=== PATIENT | male | born 1985 | race Caucasian/White ===

== ENCOUNTER 2022-02-28 09:43 | Emergency (ER) | payer BC ==
[2022-02-28 10:00] VITALS: BP 127/80; PULSE 77; RESP 18; TEMP 98.3; BMI 31.0
[2022-02-28] MEDS ORDERED: KETOROLAC TROMETHAMINE 30 MG/1 ML VIAL IM ONE (10:20)
[2022-02-28] MEDS ORDERED: LIDOCAINE 5% TOPICAL PATCH TP ONE (10:20)
[2022-02-28] MEDS ORDERED: KETOROLAC TROMETHAMINE 30 MG/1 ML VIAL ONE (10:34)
[2022-02-28] MEDS ORDERED: LIDOCAINE 5% TOPICAL PATCH ONE (10:34)
== END 2022-02-28 13:01 | disposition home or self-care (01) ==
LOC: JER 09:43 → JERFT 09:43
PROC: 3E023GC Introduction of Other Therapeutic Substance into Muscle, Percutaneous Approach (ICD-10-PCS; principal; 2022-02-28)
DX: M54.42 Lumbago with sciatica, left side (principal)
CPT/HCPCS: 72131-TC; 99284-25

== ENCOUNTER 2022-04-09 12:27 | Emergency (ER) | payer BC ==
[2022-04-09 13:24] VITALS: BP 114/74; PULSE 100; RESP 18; TEMP 102.4; BMI 31.3
[2022-04-09] MEDS ORDERED: IBUPROFEN 600 MG TABLET (FP) PO ONE ×2 (14:47→14:52)
== END 2022-04-09 15:06 | disposition home or self-care (01) ==
LOC: JER 12:27
DX: J09.X2 Influenza due to identified novel influenza A virus with other respiratory manifestations (principal)
CPT/HCPCS: 0241U-QW; 99283-25

== ENCOUNTER 2022-05-20 04:20 | Day surgery (SDC) | payer BC ==
[2022-05-15 11:20] VITALS: BMI 31.3
[2022-05-20] MEDS ORDERED: MIDAZOLAM HCL 2 MG/2 ML SINGLE DOSE VIAL ONE ×2 (13:03→13:32)
[2022-05-20] MEDS ORDERED: LIDOCAINE HCL 2% 100 MG/5 ML DISP.SYRIN ONE (13:25)
[2022-05-20] MEDS ORDERED: ONDANSETRON 4 MG/2 ML VIAL ONE (13:32)
[2022-05-20 15:19] VITALS: BP 119/65; PULSE 62; RESP 18; TEMP 97.7
== END 2022-05-20 15:40 | disposition home or self-care (01) ==
LOC: JASU-SURG 04:20
PROVIDERS: ATTEND Urology
PROC: 0TF3XZZ Fragmentation in Right Kidney Pelvis, External Approach (ICD-10-PCS; principal; 2022-05-20 13:00)
DX: N20.0 Calculus of kidney (principal)

== ENCOUNTER 2022-05-22 21:56 | Emergency (ER) | payer BC ==
[2022-05-22 22:09] VITALS: BP 129/86; PULSE 58; RESP 17; TEMP 98.1; BMI 31.3
[2022-05-22] MEDS ORDERED: TAMSULOSIN HCL 0.4 MG CAP PO ONE (23:50)
[2022-05-22] MEDS ORDERED: KETOROLAC TROMETHAMINE 30 MG/1 ML VIAL IM ONE (23:50)
[2022-05-23 00:03] LABS: EPI CELLS 2 /uL (0-25.1); HYALINE CASTS 0 /uL (0-3.1); PH,URINE 5.5 (5.0-8.0); URINE APPEARANCE CLEAR; URINE BACTERIA 15 /uL (0-1359); URINE BILIRUBIN NEGATIVE (NEGATIVE); URINE COLOR YELLOW; URINE GLUCOSE (UA) NEGATIVE (NEGATIVE); URINE KETONE NEGATIVE (NEGATIVE); URINE LEUK ESTERASE NEGATIVE (NEGATIVE); URINE NITRITE NEGATIVE (NEGATIVE); URINE PROTEIN NEGATIVE (NEGATIVE); URINE RBC 72 /uL (0-23.9); URINE UROBILINOGEN 0.2 mg/dL (0.2-1.0); URINE WBC 8 /uL (0-25.8)
[2022-05-23] MEDS ORDERED: KETOROLAC TROMETHAMINE 30 MG/1 ML VIAL ONE (00:04)
[2022-05-23] MEDS ORDERED: TAMSULOSIN HCL 0.4 MG CAP ONE (00:04)
[2022-05-23 00:41] LABS: BASO % 0.4 % (0-2.0); EOS % 0.1 % (0-4.5); HEMATOCRIT 41.7 % (35.4-49); HEMOGLOBIN 14.2 GM/dL (11.7-16.9); LYMPH % 8.1 % (8-40); MCH 29.9 pg (25.7-33.7); MCHC 34.1 g/dl (32.0-35.9); MEAN CELL VOLUME 87.7 fl (80-96); MEAN PLT VOLUME 8.1 fl (7.5-11.1); MONO % 7.5 % (3.8-10.2); NEUT % 83.9 % (42.8-82.8); PLATELET COUNT 318 10^3/uL (134-434); RBC 4.75 M/mm3 (4.00-5.60); RDW 13.4 % (11.9-15.9); WHITE BLOOD COUNT 12.2 K/mm3 (4.0-10.0)
[2022-05-23 01:02] LABS: ALBUMIN 3.9 g/dl (3.4-5.0); BLOOD UREA NITROGEN 22.9 mg/dL (7-18); CALCIUM 9.2 mg/dL (8.5-10.1)
[2022-05-23 01:05] LABS: CREATININE 1.3 mg/dL (0.55-1.3)
[2022-05-23 01:07] LABS: BILIRUBIN,TOTAL 0.5 mg/dL (0.2-1); TOT PROT 7.3 g/dl (6.4-8.2)
== END 2022-05-23 01:54 | disposition home or self-care (01) ==
LOC: JER 21:56
PROC: 3E023GC Introduction of Other Therapeutic Substance into Muscle, Percutaneous Approach (ICD-10-PCS; principal; 2022-05-22)
DX: N23 Unspecified renal colic (principal); K59.00 Constipation, unspecified
CPT/HCPCS: 36415; 74018-TC-FY; 80053; 81003; 85025; 87086; 99284-25

== ENCOUNTER 2022-06-17 15:07 | Emergency (ER) | payer BC ==
[2022-06-17 15:27] VITALS: BP 116/73; PULSE 70; RESP 18; TEMP 98.7; BMI 31.7
[2022-06-17] MEDS ORDERED: SODIUM CHLORIDE 0.9% 500 ML INFUS.BAG IV ONE (17:49)
[2022-06-17] MEDS ORDERED: ONDANSETRON 4 MG/2 ML VIAL IVPUSH ONE (18:07)
[2022-06-17] MEDS ORDERED: FAMOTIDINE 20 MG/50 ML IVPB 20 MG/50 ML MG IVPB ONE (18:07)
[2022-06-17 18:15] LABS: BASO % 0.8 % (0-2.0); EOS % 0.8 % (0-4.5); HEMATOCRIT 45.2 % (35.4-49); HEMOGLOBIN 15.6 GM/dL (11.7-16.9); LYMPH % 38.8 % (8-40); MCH 30.6 pg (25.7-33.7); MCHC 34.5 g/dl (32.0-35.9); MEAN CELL VOLUME 88.6 fl (80-96); MEAN PLT VOLUME 7.4 fl (7.5-11.1); MONO % 10.6 % (3.8-10.2); PLATELET COUNT 272 10^3/uL (134-434); RBC 5.11 M/mm3 (4.00-5.60); RDW 13.2 % (11.9-15.9); WHITE BLOOD COUNT 6.5 K/mm3 (4.0-10.0)
[2022-06-17 18:44] LABS: CALCIUM 9.2 mg/dL (8.5-10.1)
[2022-06-17 18:45] LABS: ALBUMIN 4.1 g/dl (3.4-5.0); BLOOD UREA NITROGEN 15.2 mg/dL (7-18)
[2022-06-17 18:47] LABS: URINE APPEARANCE CLEAR; URINE BILIRUBIN NEGATIVE (NEGATIVE); URINE COLOR YELLOW; URINE GLUCOSE (UA) NEGATIVE (NEGATIVE); URINE KETONE NEGATIVE (NEGATIVE); URINE LEUK ESTERASE NEGATIVE (NEGATIVE); URINE NITRITE NEGATIVE (NEGATIVE); URINE PROTEIN NEGATIVE (NEGATIVE); URINE UROBILINOGEN 0.2 mg/dL (0.2-1.0)
[2022-06-17 18:49] LABS: BILIRUBIN,TOTAL 0.8 mg/dL (0.2-1)
[2022-06-17] MEDS ORDERED: LIDOCAINE 5% TOPICAL PATCH TP ONE (18:58)
[2022-06-17] MEDS ORDERED: KETOROLAC TROMETHAMINE 15 MG/ML VIAL IVPUSH ONE (18:58)
[2022-06-17] MEDS ORDERED: LIDOCAINE PATCH REMOVAL MC SCH (22:00)
== END 2022-06-17 20:04 | disposition home or self-care (01) ==
LOC: JER 15:07
PROC: 3E033GC Introduction of Other Therapeutic Substance into Peripheral Vein, Percutaneous Approach (ICD-10-PCS; principal; 2022-06-17)
PROC: 3E0333Z Introduction of Anti-inflammatory into Peripheral Vein, Percutaneous Approach (ICD-10-PCS; 2022-06-17)
PROC: 3E033GC Introduction of Other Therapeutic Substance into Peripheral Vein, Percutaneous Approach (ICD-10-PCS; 2022-06-17)
DX: R10.9 Unspecified abdominal pain (principal); M54.50 Low back pain, unspecified
CPT/HCPCS: 36415; 74176-TC; 80053; 81003; 85025; 87086; 99284-25

== ENCOUNTER 2024-05-22 18:16 | Emergency (ER) | payer BC ==
[2024-05-22 18:32] VITALS: BP 122/78; PULSE 72; RESP 16; TEMP 98.2; BMI 31.6
[2024-05-22] MEDS ORDERED: ONDANSETRON 4 MG/2 ML VIAL ONE (19:59)
[2024-05-22] MEDS: ONDANSETRON *ODT* 4 MG TABLET SL ONE (20:03)
[2024-05-22] MEDS: SODIUM CHLORIDE 0.9% 500 ML INFUS.BAG IV ONE (20:03)
[2024-05-22 20:09] LABS: BASO % 0.4 % (0-2.0); EOS % 1.4 % (0-4.5); HEMATOCRIT 42.6 % (35.4-49); HEMOGLOBIN 14.6 GM/dL (11.7-16.9); LYMPH % 28.5 % (8-40); MCH 30.2 pg (25.7-33.7); MCHC 34.3 g/dl (32.0-35.9); MEAN CELL VOLUME 88.1 fl (80-96); MEAN PLT VOLUME 7.3 fl (7.5-11.1); NEUT % 56.7 % (42.8-82.8); PLATELET COUNT 263 10^3/uL (134-434); RBC 4.83 M/mm3 (4.00-5.60); RDW 13.2 % (11.9-15.9); WHITE BLOOD COUNT 7.7 K/mm3 (4.0-10.0)
[2024-05-22 20:25] LABS: ALBUMIN 3.5 g/dl (3.4-5.0); BLOOD UREA NITROGEN 14.3 mg/dL (7-18); CALCIUM 8.8 mg/dL (8.5-10.1); MAGNESIUM 1.9 mg/dL (1.8-2.4)
[2024-05-22 20:29] LABS: CREATININE 1.1 mg/dL (0.55-1.3)
[2024-05-22 20:31] LABS: BILIRUBIN,TOTAL 0.3 mg/dL (0.2-1); TOT PROT 6.8 g/dl (6.4-8.2)
== END 2024-05-22 21:28 | disposition home or self-care (01) ==
LOC: JER 18:16
DX: K52.9 Noninfective gastroenteritis and colitis, unspecified (principal); R42 Dizziness and giddiness
CPT/HCPCS: 36415; 80053; 83735; 85025; 93005; 93010; 99284-25; Q0162